=== PATIENT | female | born 1970 | race Caucasian/White ===

== ENCOUNTER 2019-05-26 18:32 | Emergency (ER) | payer OTHER, SELFPAY ==
[2019-05-26 18:50] VITALS: BP 159/89; PULSE 90; RESP 15; TEMP 36.8; O2SAT 96
--- NOTE | 2019-05-26 19:32 | ED.GENADULT ---
HPI - General Adult General Chief complaint: Unspecified Stated complaint: swelling,itching, aching in hands Time Seen by Provider: 05/26/19 19:10 Source: patient Mode of arrival: ambulatory Limitations: no limitations History of Present Illness HPI narrative: Emily is a very pleasant 49-year-old female patient. She presents ambulatory to the emergency room. She states that she has had pruritic rash is to both hands for the past 5 months. Today is the itching got worse. Her hands have been red and for the past 4-5 months. There is no drainage from the skin. She has been using topical Benadryl cream and some cortisone cream. However today because of the increase in the symptoms she presented to the emergency room. She states that it started 5 months ago in summer while she was working in the [employer]. She does not know what exactly caused it. She has not seen a director decision support. She has no fever. No trouble breathing. No difficulty swallowing. Onset (ago): month(s) ( Started 5 months ago) Location: upper extremity ( both hands) Radiation: non-radiation Severity: moderate Severity scale (1-10): 5 Quality: burning and other ( pruritic) Pain Consistency: other ( pruritic) Relieving factors: none Exacerbating factors: none Associated symptoms: denies other symptoms Treatments prior to arrival: other ( see HPI narrative) Related Data Allergies Allergy/AdvReac Type Severity Reaction Status Date / Time tolterodine Allergy Unknown SEVERE N/V Unverified 08/01/08 15:15 DETROL LA Allergy Mild Nausea and Uncoded 07/20/06 15:05 Vomiting Review of Systems Review of Systems: All systems reviewed & are unremarkable except as noted in HPI and below Constitutional: Constitutional: Reports no additional constitutional complaints, Denies chills and Denies fever(s) Eyes: Eyes: Reports no additional eye complaints and Denies change in vision ENT: Reports system reviewed and no additional complaints, except as documented, Denies dizziness, Denies nasal congestion and Denies sore throat Cardiovascular: Cardiovascular: Reports no additional cardiovascular complaints, Denies chest pain and Denies radiating jaw, neck or arm pain Respiratory: Respiratory: Reports no additional respiratory complaints and Denies cough Gastrointestinal: Gastrointestinal: Reports no additional gastrointestinal complaints, Denies abdominal pain, Denies nausea and Denies vomiting Genitourinary: Genitourinary: Reports no additional female genitourinary complaints, Denies hematuria and Denies dysuria Musculoskeletal: Musculoskeletal: Reports no additional musculoskeletal complaints and Denies back pain Integumentary/Breasts: Skin/Breast: Reports system reviewed and no additional complaints, except as docu, Reports pruritus, Reports erythema and Reports rash Neurologic: Reports system reviewed and no additional complaints, except as documented, Denies vertigo, Denies dizziness, Denies syncope, Denies headache(s), Denies focal weakness, Denies numbness and Denies weakness Psychiatric: Psychiatric: Reports no additional psychiatric complaints, Denies anxiety and Denies depression Endocrine: Endocrine: Reports no additional endocrine complaints, Denies polydipsia and Denies polyuria Hematologic/Lymphatic: Hematologic/Lymphatic: Reports no additional hematologic/lymphatic complaints, Denies easy bleeding and Denies easy bruising PMFSH Past Medical History Medical History (Updated 05/26/19 @ 19:42 by Allen Cabrera MD) History of pruritus of skin Surgical History Surgical History (Updated 05/26/19 @ 19:38 by Allen Cabrera MD) History of hysterectomy Family History Family History (Updated 05/26/19 @ 19:38 by Allen Cabrera MD) Mother No problems noted. Father No problems noted. Social History Social History (Updated 05/26/19 @ 19:39 by Allen Cabrera MD) Smoking status: Current every day smoker Alcohol use details: does
[2019-05-26] MEDS: predniSONE 20 MG TABLET 40 MG PO (19:59)
[2019-05-26 20:02] VITALS: BP 140/82; PULSE 89; RESP 18; O2SAT 100
== END 2019-05-26 20:05 | disposition home or self-care (01) ==
PROVIDERS: Emergency Provider Surgery; PCP Internal Medicine
DX: L29.9 Pruritus, unspecified (principal); R21 Rash and other nonspecific skin eruption
CPT/HCPCS: 99283; J7512

== ENCOUNTER 2020-11-05 16:26 | Outpatient (CLI) | payer BC, SELFPAY ==
--- NOTE | ~2020-11-05 | XR_ITS ---
XR lumbar spine 2-3V DATE: 11/05/2020 16:55 INDICATION: Low back pain radiating to legs for years. Intermittent numbness. TECHNIQUE: AP, lateral, coned lateral lumbosacral views COMPARISON: 12/24/2016 lumbar spine FINDINGS: There is diffuse osteopenia. There is moderate anterior wedge compression fracture deformity, new since 12/24/2006. There is minimal degenerative spurring of the lumbar spine. Lumbar and lumbosacral interspaces are re latively well preserved. No bone destruction is evident. Included lower thoracic and lumbar pedicles are intact. The sacroiliac joints are intact. Status post cholecystectomy. IMPRESSION: Diffuse osteopenia L1 compression fracture Reviewed, dictated and finalized at location A.
--- NOTE | ~2020-11-05 | XR_ITS ---
XR hip BI wo pelvis DATE: 11/05/2020 16:54 INDICATION: Low back pain radiating to both legs. Hip pain. TECHNIQUE: AP and lateral views of each hip COMPARISON: None FINDINGS: There is osteopenia. No fracture or dislocation, avascular necrosis or bone destruction of either hip. Hip joint spaces ar e symmetric and relatively preserved. The pubic symphysis and sacroiliac joints are intact. IMPRESSION: Osteopenia Reviewed, dictated and finalized at location A. IMPRESSION: Osteopenia
== END 2020-11-05 16:27 | disposition home or self-care (01) ==
LOC: CHSIMG 16:30
PROVIDERS: PCP Internal Medicine; Visit Provider Internal Medicine
DX: M79.606 Pain in leg, unspecified (principal)
CPT/HCPCS: 72100; 73521

== ENCOUNTER 2020-11-08 07:20 | Outpatient (CLI) | payer BC, SELFPAY ==
[2020-11-08 07:31] LABS: Basophils Absolute Auto 0.04 K/mm3 (0.00-0.10); Basophils Percent Auto 0.4 % (0.0-1.0); Eosinophils Absolute Auto 0.23 K/mm3 (0.02-0.50); Eosinophils Percent Auto 2.2 % (1.0-6.0); Hemoglobin 13.5 g/dL (12.0-15.0); Immature Granulocyte Absolute 0.06 K/mm3 (0.00-0.00); Immature Granulocyte Percent A 0.6 % (0.0-0.0); Lymphocytes Absolute Auto 3.87 K/mm3 (1.10-4.50); Lymphocytes Percent Auto 37.6 % (18.0-42.0); Mean Corpuscular HGB Conc 33.8 g/dL (32.0-36.0); Mean Corpuscular Hemoglobin 32.9 pg (27.0-31.0); Mean Corpuscular Volume 97.6 fL (78.0-102.0); Mean Platelet Volume 9.8 fl (9.2-11.8); Monocytes Absolute Auto 0.81 K/mm3 (0.10-0.90); Monocytes Percent Auto 7.9 % (2.0-11.0); Neutrophils Absolute Auto 5.3 K/mm3 (1.7-7.2); Neutrophils Percent Auto 51.3 % (50.0-70.0); Platelet Count Result 329 K/mm3 (150-420); Red Cell Distribution Width 12.7 % (11.6-14.4); White Blood Count 10.3 K/mm3 (4.8-10.8)
[2020-11-08 07:32] LABS: Add Urine Microscopic? NO; Appearance Urine Clear (Clear); Bilirubin Urine Negative (Negative); Blood Urine Negative (Negative); Color Urine Light Yellow (Yellow); Glucose Urine UA Negative (Negative); Ketones Urine Negative (Negative); Leukocyte Esterase Ur Negative (Negative); Nitrate Urine Negative (Negative); Protein Urine Negative (Negative); Urobilinogen Urine 0.2 mg/dL (0.2-1.0)
[2020-11-08 08:43] LABS: Alanine Aminotransferase 30 U/L (14-59); Albumin Level 3.9 g/dL (3.4-5.0); Alkaline Phosphatase 122 U/L (46-116); Anion Gap 11 mmol/L (8-16); Aspartate Amino Transferase 12 U/L (15-37); Bilirubin,Total 0.3 mg/dL (0.00-1.00); Blood Urea Nitrogen 12 mg/dL (7-18); CRP < 0.5 mg/dL (0.0-0.9); Calcium 8.9 mg/dL (8.5-10.1); Carbon Dioxide 27 mmol/L (21-32); Chloride 106 mmol/L (98-108); Cholesterol 206 mg/dL (0-200); Estimated Glomerular Filt Rate > 60; Glucose 114 mg/dL (70-99); HDL Direct 38 mg/dL (40-60); LDL Cholesterol Calculated 134 mg/dL (<130); Osmolality Calculated 298 mOsm/kg (285-295); Potassium 4.8 mmol/L (3.5-5.1); Sodium 144 mmol/L (136-145); Thyroid Stimulating Hormone 0.99 uIU/mL (0.36-3.74); Total Protein 6.5 g/dL (6.4-8.2); Triglycerides 172 mg/dL (0-150)
[2020-11-08 14:18] LABS: Hemoglobin A1C 5.8 % (<5.7)
== END 2020-11-08 07:21 | disposition home or self-care (01) ==
LOC: CHSLAB 07:21
PROVIDERS: PCP Internal Medicine; Visit Provider Internal Medicine
DX: Z00.00 Encounter for general adult medical examination without abnormal findings (principal); M79.601 Pain in right arm; M79.606 Pain in leg, unspecified; R73.01 Impaired fasting glucose
CPT/HCPCS: 36415; 80053; 80061; 81003; 83036; 84443; 85025; 86140

== ENCOUNTER 2022-11-02 15:27 | Outpatient (CLI) | payer BC, SELFPAY ==
--- NOTE | ~2022-11-02 | XR_ITS ---
XR ankle RT min 3V DATE: 11/02/2022 15:51 INDICATION: Anterior right ankle pain for 4 days. No injury. TECHNIQUE: 4 views COMPARISON: 02/25/2012 right tibia fibula FINDINGS: There is prominent generalized soft tissue swelling of the right ankle, not present on 02/17. No fracture or dislocation of the ankle or disruption of the ankle mortise. No periosteal reaction or bone destruction. Mild plantar calcaneal enthesopathy without associated erosive change or periostitis. IMPRESSION: Generalized prominent soft tissue swelling Mild plantar calcaneal enthesopathy Reviewed, dictated and finalized at location B.
== END 2022-11-02 15:28 | disposition home or self-care (01) ==
LOC: CHSIMG 15:29
PROVIDERS: PCP Internal Medicine; Visit Provider Internal Medicine
DX: M25.571 Pain in right ankle and joints of right foot (principal); M25.471 Effusion, right ankle; M79.89 Other specified soft tissue disorders; M77.31 Calcaneal spur, right foot
CPT/HCPCS: 73610

== ENCOUNTER 2023-05-24 11:48 | Outpatient (CLI) | payer BC, SELFPAY ==
--- NOTE | ~2023-05-24 | XR_ITS ---
XR chest 2V DATE: 05/24/2023 12:01 INDICATION: Cough for 3 days. Chest pain. Smoker. TECHNIQUE: 2 views COMPARISON: 12/17/2021 PA chest FINDINGS: Heart size is within upper normal range. No hilar or mediastinal enlargement. No pulmonary infiltrate or consolidation, pleural effusion or pulmonary vascular congestion or pneumo thorax is detected. Diffuse osteopenia. Moderate anterior wedge compression fracture deformity of L1. Surgical clips, right upper quadrant, likely due to cholecystectomy. Osteopenia. IMPRESSION: No active cardiopulmonary disease L1 compression fracture deformity Osteopenia Status post cholecystectomy Reviewed, dictated and finalized at location B. ICAL RESEARCH SPEC
== END 2023-05-24 11:49 | disposition home or self-care (01) ==
LOC: CHSIMG 11:52
PROVIDERS: PCP Internal Medicine; Visit Provider Internal Medicine
DX: R05.9 Cough, unspecified (principal); M48.56XA Collapsed vertebra, not elsewhere classified, lumbar region, initial encounter for fracture; M85.88 Other specified disorders of bone density and structure, other site; Z90.49 Acquired absence of other specified parts of digestive tract
CPT/HCPCS: 71046

== ENCOUNTER 2024-06-07 12:01 | Outpatient (CLI) | payer BC, SELFPAY ==
--- OUTSIDE RECORDS SUMMARY | 2024-06-07 12:05 | XMS_ITS | Continuity of Care Document ---
Author Organization [facility] Address [address] [place] [address] utive [facility] [address] [place] [address] Phone Care Team Providers Care Stonework Supervisor Name Role Phone Reyes OD, Arnulfo Unavailable Unavailable Procedures Procedure Date Eye Exam & Treatment Refraction Advance Directives Directive Yes / No Effective Date File Name No Information Encounters Encounter Description Practice Location Reason(s) For Visit Diagnoses Date Provider Providers Copied on Encounter [facility], [address] [place] [address] [address], [place], [place], [id number], [place] tel:[phone] [facility] No Information 5-200 7 Reyes OD Arnulfo. [address] , [address], [place], [address], [place]. tel:[phone] Family History Family Member Type Diagnosis Age At Onset No Information Payers Payer name Insurance type Covered libertarian ID Authoriza tion(s) No Information Social History Type Description Quantity Date Captured Comments Sex Female Smoking Status No Information Chief Complaint And Reason For Visit No Information Reason For Referral Reason For Referral No Information History Of Present Illness Encounter Date Complaint History Of Prese nt Illness No Information Functional Status Date Functional Assessmen t No Information Instructions Date Instruction Additional Infor mation No Information Assessments Type Assessment Date No Information Patient Care Teams Name Effective Dates (start - stop) Status Members No Information
[2024-06-07 12:24] LABS: Hematocrit 43.5 % (35.0-49.0); Hemoglobin 14.5 g/dL (12.0-15.0); Mean Corpuscular HGB Conc 33.3 g/dL (32-36); Mean Corpuscular Hemoglobin 32.2 pg (27.0-31.0); Mean Corpuscular Volume 96.7 fL (78.0-102.0); Mean Platelet Volume 10.2 fl (9.2-11.8); Platelet Count Result 288 K/mm3 (150-420); Red Cell Distribution Width 12.8 % (11.6-14.4); White Blood Count 8.4 K/mm3 (4.8-10.8)
[2024-06-07 12:26] LABS: Add Urine Microscopic? YES; Appearance Urine Clear (Clear); Bilirubin Urine Negative (Negative); Blood Urine Trace-intact (Negative); Color Urine Light Yellow (Yellow); Glucose Urine UA Negative (Negative); Ketones Urine Negative (Negative); Leukocyte Esterase Ur Trace (Negative); Nitrate Urine Negative (Negative); Protein Urine Negative (Negative); Specific Grav Ur 1.015 (1.010-1.020); Urobilinogen Urine 0.2 mg/dL (0.2-1.0)
[2024-06-07 12:31] LABS: RBC Urine None seen /hpf (0-2); WBC Urine 0-3 /hpf (0-3)
[2024-06-07 12:32] LABS: Bacteria Urine 1+ /hpf; Squamous Epithelial Cell Urine Few /hpf (Few)
[2024-06-07 13:12] LABS: Alanine Aminotransferase 34 U/L (14-59); Albumin Level 4.1 g/dL (3.4-5.0); Alkaline Phosphatase 149 U/L (46-116); Amylase 32 U/L (25-115); Anion Gap 11 mmol/L (4-12); Aspartate Amino Transferase 23 U/L (15-37); Bilirubin,Total 0.3 mg/dL (0.00-1.00); Blood Urea Nitrogen 9 mg/dL (7-18); CRP 1.9 mg/dL (0.0-0.9); Calcium 9.5 mg/dL (8.5-10.1); Carbon Dioxide 26 mmol/L (21-32); Chloride 103 mmol/L (98-108); Estimated Glomerular Filt Rate > 60; Glucose 96 mg/dL (70-99); Lipase 26 U/L (16-77); Osmolality Calculated 288 mOsm/kg (285-295); Potassium 4.8 mmol/L (3.5-5.1); Sodium 140 mmol/L (136-145); Total Protein 7.3 g/dL (6.4-8.2)
== END 2024-06-07 12:02 | disposition home or self-care (01) ==
PROVIDERS: PCP Internal Medicine; Visit Provider Internal Medicine
DX: R10.9 Unspecified abdominal pain (principal)
CPT/HCPCS: 36415; 80053; 81001; 82150; 83690; 85027; 86140